=== PATIENT | male | born 2000 | race Caucasian/White ===

== ENCOUNTER 2022-09-13 10:18 | Emergency (ER) | payer OTHER, MEDICAID, SELFPAY ==
[2022-09-13] VITALS (8 sets, daily range): BP systolic 99–113; BP diastolic 55–79; PULSE 57–107; RESP 13–26; TEMP 37; O2SAT 93–98; BMI 19.2
[2022-09-13 10:39] LABS: Add Manual Diff / Slide Review NO; Basophils Absolute Auto 0 /uL (0-100); Basophils Percent Auto 0.3 % (0-2); Eosinophils Absolute Auto 400 /uL (0-450); Eosinophils Percent Auto 5.2 % (2-4); Hematocrit 39.8 % (41-53); Hemoglobin 13.7 g/dL (13.5-17.5); Lymphocytes Absolute Auto 2100 /uL (1100-4500); Lymphocytes Percent Auto 25.4 % (25-40); Mean Corpuscular HGB Conc 34.5 % (30-36); Mean Corpuscular Hemoglobin 29.6 PG (26-34); Mean Corpuscular Volume 85.8 fL (80-100); Monocytes Absolute Auto 700 /uL (0-900); Monocytes Percent Auto 8.5 % (3-14); Neutrophils Absolute Auto 4900 /uL (1500-7000); Neutrophils Percent Auto 60.6 % (50-75); Platelet Count 272 X10^3/uL (150-400); Red Blood Cell Count 4.64 X10^6/uL (4.5-5.9); White Blood Cell Count 8.1 X10^3/uL (4.5-11.0)
[2022-09-13] MEDS: ONDANSETRON 4 MG/2 ML INJ IV (10:39)
--- NOTE | 2022-09-13 10:39 | ED.ABDPAIN ---
HPI - Abdominal Pain General Chief Complaint: Abdominal Pain Stated Complaint: waking up N/V, bad headache, chest pain Time Seen by Provider: 09/13/22 10:32 Source: patient Mode of arrival: Ambulatory History of Present Illness HPI narrative: Patient 22-year-old male history of opioid abuse but on Suboxone not used in 2 months daily marijuana use presents today with nausea vomiting. He reports that he wakes up every morning vomits at least 12 times by the afternoon he is able to keep some things down. Today he had some burning in his chest and some discomfort. He is sometimes dizzy but he is not passed out no significant abdominal pain no fever chills no diarrhea. Related Data Previous Rx's Medication Instructions Recorded ondansetron 4 mg disintegrating 4 mg PO Q8H PRN nausea and 09/13/22 tablet vomiting #10 tabs Allergies Allergy/AdvReac Type Severity Reaction Status Date / Time No Known Drug Allergies Allergy Verified 09/13/22 10:39 Review of Systems Review of Systems ROS Unobtainable: All systems reviewed & are unremarkable except as noted in HPI and below Patient History Social History Smoking Status: Current every day smoker Smoking Status: Current every day smoker tobacco type: vaping alcohol intake frequency: other Substance Use Type: marijuana Exam Initial Vital Signs Initial Vital Signs: Vital Signs Temperature 98.6 F 09/13/22 10:26 Pulse Rate 106 H 09/13/22 10:26 Respiratory Rate 20 09/13/22 10:26 Blood Pressure 113/60 09/13/22 10:26 Pulse Oximetry 98 09/13/22 10:26 Oxygen Delivery Method Room Air 09/13/22 10:26 GENERAL: Alert 22-year-old male and in no acute distress. HEENT: Head atraumatic,EOMI, pupils reactive, face symmetric, moist mucous membranes CARDIOVASCULAR: Regular rate and rhythm without murmurs, rubs or gallops. RESPIRATORY: Breath sounds equal bilaterally, no wheezes rales or rhonchi. ABDOMEN: Soft, nontender. Normoactive bowel sounds all 4 quadrants. No guarding or rebound. EXTREMITIES: Normal range of motion, no clubbing or edema. Neurovascularly intact NEUROLOGICAL: Alert and oriented x4. SKIN: Warm, dry, no laceration, no petechiae, no rashes or lesions. Course Orders Ordered: ED Orders 09/13/22 10:30 Complete Blood Count AUTO DIFF Stat Comprehensive Metabolic Panel Stat Lipase Stat 09/13/22 10:54 EKG-12 Lead Stat 09/13/22 12:36 Urine Drug Screen, Rapid Stat Discontinued Medications Sodium Chloride (Normal Saline 0.9%) 1,000 mls @ 1,000 mls/hr IV BOLUS ONE Stop: 09/13/22 11:38 Last Infusion: 09/13/22 12:01 Dose: 0 mls/hr Documented By: Admin: 09/13/22 10:51 Dose: 1,000 mls/hr Documented By: RB Ketorolac Tromethamine (Ketorolac 30 Mg/Ml Vial) 15 mg IV NOW ONE Stop: 09/13/22 12:22 Last Admin: 09/13/22 13:06 Dose: 15 mg Documented By: RB Ondansetron HCl (Ondansetron 4 Mg Odt) 4 mg PO NOW PRN PRN Reason: Nausea And Vomiting Ondansetron HCl (Ondansetron 4 Mg/2 Ml Inj) 4 mg IV NOW PRN PRN Reason: Nausea And Vomiting Last Admin: 09/13/22 10:39 Dose: 4 mg Documented By: RB Pantoprazole Sodium (Pantoprazole 40 Mg Vial) 40 mg IV NOW ONE Stop: 09/13/22 10:40 Last Admin: 09/13/22 10:52 Dose: 40 mg Documented By: RB Vital Signs Vital signs: Vital Signs - 8 hr 09/13/22 11:00 09/13/22 11:00 09/13/22 11:30 Pulse Rate 85 Respiratory Rate 15 Blood Pressure 104/58 L 100/57 L Pulse Oximetry 97 09/13/22 11:30 09/13/22 12:00 09/13/22 12:00 Pulse Rate 66 57 L Respiratory Rate 26 H 21 Blood Pressure 100/56 L Pulse Oximetry 96 97 09/13/22 12:35 09/13/22 12:36 09/13/22 12:36 Pulse Rate 73 63 Respiratory Rate 13 Blood Pressure 108/56 L Pulse Oximetry 98 98 09/13/22 13:00 09/13/22 13:00 Pulse Rate 64 Respiratory Rate 14 Blood Pressure 99/55 L Pulse Oximetry 96 MDM - Abdominal Pain Lab Data 09/13/22 10:30 09/13/22 10:30 Labs: Lab Results 09/13/22 09/13/22 09/13/22 Range/Units 10:30 10:30 12:36 WBC 8.1 (4.5-11.0) X10^3/uL RBC 4.64 (4.5-5.9) X10^6/uL Hgb 13.7 (13.5-17.5) g/dL Hct 39.8 L (41-53) % MCV 85.8 (80-100) fL MCH 29.6 (26-34) PG MCHC 34.5 (30-36) % RDW 13.0 (11.6-14.8) % Plt Count 272 (150-400) X10^3/uL Neut % (Auto) 60.6 (50-75) % Lymph % (Auto) 25.4 (25-40) % [place] % (Auto) 8.5 (3-14) % Eos % (Auto) 5.2 H (2-4) % Baso % (Auto) 0.3 (0-2) % Neut # (Auto) 4900 (5786-4178) /uL Lymph # (Auto) 2100 (7934-4781) /uL [place] # (Auto) 700 (0-900) /uL Eos # (Auto) 400 (0-450) /uL Baso # (Auto) 0 (0-100) /uL Sodium 140 (137-145) mmol/L Potassium 3.5 (3.4-5.1) mmol/L Chloride 101 (98-107) mmol/L Carbon Dioxide 33 H (22-32) mmol/L BUN 12 (9-20) mg/dL Creatinine 1.03 (0.66-1.25) mg/dL Estimated GFR > 60 (>60) mL/min BUN/Creatinine Ratio 11.7 (6-22) Glucose 97 (70-100) mg/dL Calcium 9.5 (8.4-10.2) mg/dL Total Bilirubin 0.7 (0.2-1.3) mg/dL AST 25 (17-59) IU/L ALT 24 (<50) IU/L Alkaline Phosphatase 116 (38-126) U/L Total Protein 7.6 (6.3-8.2) g/dL Albumin 4.4 (3.5-5.0) g/dL Globulin 3.2 (1.7-4.1) g/dL Albumin/Globulin Ratio 1.4 (1.0-2.8) Lipase 12 L (23-300) U/L U Opiates 300ng/mL cut Negative (Negative) Ur Oxycodone Screen Negative (Negative) Urine Methadone Screen Negative (Negative) Ur Barbiturates Screen Negative (Negative) U Tricyclic Antidepress Negative (Negative) Ur Phencyclidine Scrn Negative (Negative) Ur Amphetamines Screen Negative (Negative) U Methamphetamines Scrn Negative (Negative) Ur MDMA Scrn (Ecstasy) Negative (Negative) U Benzodiazepines Scrn Negative (Negative) Urine Cocaine Screen Negative (Negative) U Marijuana (THC) Screen Positive H (Negative) Point of care testing: Urine Dip Bedside Urine Glucose Negative Bedside Urine Bilirubin - Negative Bedside Urine Ketone - Negative Urine Specific Welch 1.025 Bedside Urine Occult Blood + Bedside Urine pH 5.5 Bedside Urine Protein - Negative Bedside Urine Urobilinogen - Negative Bedside Urine Nitrite - Negative Bedside Urine Leukocytes - Negative Esterase ECG Data Interpretation: Normal sinus rhythm rate 80 UT interval 152 QRS [address] changes mild artifact noted normal interval MDM Narrative Medical decision making narrative: The patient 22-year-old male presents today with vomiting in the morning 3 days in a row. He had some burning in his chest today. Blood work is reviewed and unremarkable. No evidence of leukocytosis anemia electrolyte abnormality or IVANNA. He is feeling better for Zofran and Protonix. Abdomen is soft and nontender. I suspect it is vomiting may be due to his marijuana use. I do not suspect an opiate with drawl he has been on Suboxone. He also has episodes where he feels well in his able to tolerate fluids. At this time education with oral rehydration technique and strict return precautions. Differential diagnosis includes gastroenteritis hyperemesis related to marijuana, opiate withdrawal Discharge Plan Departure Patient Disposition: Home Clinical Impression: Gastroenteritis Instructions: DI for Cyclic Vomiting Syndrome-Adult Activity Restrictions/Additional Instructions: *You have been diagnosed with cyclic vomiting *What to do: At this time difficult to tell your vomiting is from it may or may not be from your daily marijuana use. Increase fluids as tolerated recommend Gatorade or Gatorade like product. *Continue to take medications as directed Zofran 4 mg every 8 hours if needed for nausea vomiting --> [facility] *Follow up with your primary care provider in 2-3 days or call [phone] *Return to ER if you should have inability to tolerate fluids dizziness lightheadedness increasing pain or any new, worsening or concerning symptoms Prescriptions: New ondansetron 4 mg tablet,disintegrating 4 mg PO Q8H PRN (Reason: nausea and vomiting) Qty: 10 0RF Referrals: Benita Redd ARNP [Primary Care Provider] - Stand Alone Forms: Patient Portal/API
[2022-09-13 10:49] LABS: Alanine Aminotransferase 24 IU/L (<50); Albumin 4.4 g/dL (3.5-5.0); Albumin Globulin Ratio 1.4 (1.0-2.8); Alkaline Phosphatase 116 U/L (38-126); Aspartate Aminotransferase 25 IU/L (17-59); BUN Creatinine Ratio 11.7 (6-22); Bilirubin Total 0.7 mg/dL (0.2-1.3); Blood Urea Nitrogen 12 mg/dL (9-20); Calcium 9.5 mg/dL (8.4-10.2); Carbon Dioxide 33 mmol/L (22-32); Chloride 101 mmol/L (98-107); Estimated Glomerular Filt Rate > 60 mL/min (>60); Globulin 3.2 g/dL (1.7-4.1); Glucose 97 mg/dL (70-100); HEMOLYSIS < 15 (0-50); Lipase 12 U/L (23-300); Potassium 3.5 mmol/L (3.4-5.1); Sodium 140 mmol/L (137-145); Total Protein 7.6 g/dL (6.3-8.2)
[2022-09-13] MEDS: SODIUM CHLORIDE 0.9% 1,000 ML 1000 ML IV (10:51)
[2022-09-13] MEDS: PANTOPRAZOLE 40 MG VIAL IV (10:52)
[2022-09-13 12:49] LABS: UR Morphine/Opiate cutoff 300 Negative (Negative); Ur Creatinine Normal (Normal); Ur Specific Gravity Normal (Normal); Urine Amphetamines Negative (Negative); Urine Barbiturates Negative (Negative); Urine Benzodiazepines Negative (Negative); Urine Cocaine Negative (Negative); Urine MDMA Negative (Negative); Urine Methadone Negative (Negative); Urine Methamphetamines Negative (Negative); Urine Oxycodone Negative (Negative); Urine Phencyclidine Negative (Negative); Urine Tetrahydrocannabinol Positive (Negative); Urine Tricyclic Antidepressant Negative (Negative); Urine pH Normal (Normal)
[2022-09-13] MEDS: KETOROLAC 30 MG/ML VIAL 15 MG IV (13:06)
== END 2022-09-13 13:21 | disposition home or self-care (01) ==
PROVIDERS: Emergency Provider Emergency Medicine; Family Provider Nurse Practitioner Gerontology; PCP Nurse Practitioner Gerontology
DX: K52.9 Noninfective gastroenteritis and colitis, unspecified (principal); R07.9 Chest pain, unspecified
CPT/HCPCS: 36415; 80053; 80305; 81003; 83690; 85025; 93005; 96361; 96374; 96375; 99284; C9113; J1885; J2405